=== PATIENT | male | born 1970 | race Caucasian/White ===

== ENCOUNTER 2017-04-20 06:03 | Inpatient (IN) | payer OTHER ==
[~2017-04-20] VITALS: Ht 190.5 cm; Wt 244.9 kg
--- NOTE | ~2017-04-20 | HC ---
[facility] [place] [address] CONSULTATION Name: LENCHO POST Room #: 239-P ADM IN M.R.#: [id number] Admission: 04/21/17 Attend Phys: Gil More DO Discharge: Date of : 66 Report #: [id number] THIS REPORT FOR: //name// CC: Gil Graves DATE OF SERVICE: 04/22/2017 ATTENDING PHYSICIAN: Dr. More. CONSULTATION REQUESTED: Dr. Leon. REASON FOR CONSULTATION: Antibiotic management. HISTORY OF PRESENT ILLNESS: A 47-year-old white man, resident of a local jail, suffered a fall at the jail. He required evacuation of right leg hematoma by Dr. Ash Graves on 04/20. The patient had previous episode of cellulitis of lower extremity, Staphylococcus aureus, oxacillin sensitive, isolated. He relates to the Emergency Room physician of previous MRSA infection. Currently in the ICU, I have discussed the patient's situation with nurse yesterday and put patient on vancomycin, Fortaz. The patient currently intubated, all information gathered from review of records. PAST MEDICAL HISTORY: 1. Morbid obesity. 2. Obstructive sleep apnea. 3. Atrial fibrillation. 4. Hypertension. 5. Diabetes mellitus. 6. Constipation. 7. Reflux esophagitis. 8. Chronic constipation. DRUG ALLERGIES: None listed. MEDICATIONS: Currently on vancomycin 1250 mg IV every 8 hours, Fortaz 1 g IV every 8 hours. The patient also on treatment with famotidine, p.r.n. glucose, p.r.n. glucagon, insulin lispro, propofol, fluoxetine, spironolactone, sennoside p.r.n., hydrocodone p.r.n., lorazepam, amphetamine, hydromorphone p.r.n., trazodone p.r.n., acetaminophen p.r.n. SOCIAL HISTORY: Unable to obtain, resides local jail. FAMILY HISTORY: Unable to obtain. [facility] [address] [place] [address] CONSULTATION Name: LENCHO POST Marianne Room #: [address] [place] [address] [place] ..#: [id number] Admission: 04/21/17 Attend Phys: Gil More DO Discharge: Date of : 66 Report #: [id number] REVIEW OF SYSTEMS: Unable to obtain. PHYSICAL EXAMINATION: GENERAL: Morbidly obese man, sedated in the ICU, on ventilator. VITAL SIGNS: Temperature 98.5, pulse 74, respirations 22, BP 113/51. HEENMT: Head normocephalic, atraumatic. Pupils reactive. Mouth unable to examine, orotracheal intubation. NECK: Short, difficult to examine. LUNGS: Clear. HEART: S1, S2. ABDOMEN: Morbidly obese, difficult to examine. GENITOURINARY AND RECTAL: Deferred. EXTREMITIES: Surgical wound, right leg with vacuum device in place. NEUROLOGIC: Unable to evaluate. LABORATORY DATA: Sodium 130, potassium 6.2, CO2 28, BUN 46, creatinine 2, glucose 209, alkaline phosphatase 123. Albumin 2.3, triglyceride 217, CRP 31.3. WBC from 13,700 on admission day to 17,300 today; hemoglobin from 14.4 to 9.6 g/dL, platelets 284,000. White blood cell count differential normal. ABGs: pH 7.31, uPR485, pO2 80, bicarbonate 28, lactate 1.84. These set of gases on FIO2 of 60%, tidal volume 600, 5 of PEEP. MICROBIOLOGY DATA: No cultures were obtained during this admission. RADIOLOGY EVALUATION: Chest x-ray: Endotracheal tube. Gastric catheter. Vascular congestion, pulmonary edema, cardiomegaly and lower lobe atelectasis or pneumonia. ASSESSMENT: 1. History of recurrent cellulitis. 2. Status post evacuation of hematoma, right leg. 3. Trauma, right leg. 4. Morbid obesity. 5. Acute kidney kvzyog-df-twwvkll kidney disease. 6. History of recurrent cellulitis of lower extremities. 7. History of methicillin-resistant staphylococcus aureus infection. SUGGESTIONS: Recommend MRSA screen. Continue Fortaz. Discontinue vancomycin. Zyvox 600 mg IV every [address] More and Dr. Leon, thank you for requesting my suggestions. <ELECTRONICALLY SIGNED> By: Ziyad Demarco MD 04/23/17 0846 [id number] 1035 Ziyad Demarco MD /nt
--- NOTE | ~2017-04-20 | O ---
[facility] [place] [address] OPERATIVE REPORT Name: LENCHO POST Room #: 218-P ADM IN M.R.#: [id number] Admission: 04/21/17 Attend Phys: Gil More DO Discharge: Date of : 66 Report #: [id number] THIS REPORT FOR: //name// CC: Gil Graves DATE OF SERVICE: 04/23/2017 PREOPERATIVE DIAGNOSIS: Right calf hematoma, status post evacuation and placement of wound VAC times 2. POSTOPERATIVE DIAGNOSIS: Right calf hematoma, status post evacuation and placement of wound VAC times 2. PROCEDURES: 1. Debridement and irrigation of the right calf wound and hematoma to the fascia. 2. Primary closure of right leg wound 26 cm in length. 3. Placement of Prevena wound VAC. SURGEON: Ash Mishra MD. CREDIT COORDINATOR: Paz Marc PA-C ANESTHESIA: General endotracheal. FINDINGS: Clean fascial tissue within the wound. There was skin edge necrosis along the anterior and posterior distal flaps of the wound edges. DRAINS: Hemovac times 2. CONDITION UPON LEAVING THE OR: Guarded. INDICATIONS FOR PROCEDURE: The patient is a 47-year-old gentleman who has had a right calf hematoma that previously has been evacuated and debrided with placement of wound VAC times 2. He was in need of a repeat debridement, irrigation and possible wound closure. DESCRIPTION OF PROCEDURE: Risks, benefits, alternatives, complications were discussed in detail with the patient's family including but not limited to risk of continued skin necrosis, reaccumulation of hematoma and need for reoperation. Informed consent was obtained from the patient's family. The right calf was marked in the ICU. He was brought from the ICU room directly to the operating room and anesthesia was induced. He was already previously intubated. The previous wound VAC was removed and calf and lower extremity were prepped and [facility] [address] [place] [address] OPERATIVE REPORT Name: LENCHO POST Marianne Room #: 218-P [facility] IN [facility].#: [id number] Admission: 04/21/17 Attend Phys: Gil More DO Discharge: Date of : 66 Report #: [id number] draped in normal sterile fashion. Timeout was performed properly identifying the patient, procedure as well as the instrumentation, all in the operating room were in agreement. The wound bed was then thoroughly irrigated with normal saline using pulse lavage. There was very minimal bleeding from this. Any areas of bleeding were cauterized with Bovie cautery. The wound did demonstrate wound edge duskiness/early necrosis, particularly of the distal half of the skin edges both anteriorly and posteriorly. It was felt that we would still try to close this over a drain. We did place 2 drains in the subcutaneous space above the fascia. The skin was closed with 2-0 nylon and a Prevena wound VAC was placed. Length of the incision was 26 cm. The patient tolerated this procedure well and went back to the ICU under care of anesthesia postoperatively. <ELECTRONICALLY SIGNED> By: Ash Mishra MD 04/30/17 1147 0836 0858 Ash Mishra MD /nt
--- NOTE | ~2017-04-20 | EKG ---
[address] [place] [address] ELECTROCARDIOGRAM REPORT Name: PETTY POSTERY Marianne Room #: 440-[facility].#: [id number] Admission: 04/20/17 Attend Phys: Gil More DO Discharge: Date of : 66 Report #: [id number] THIS REPORT FOR: //name// [facility] Test Date: 2017-04-20 Test Time: 17:52:39 Pat Name: LENCHO POST Department: Room: 440 P Gender: M Game Developer: CASSY : 1970 Requested By: Lb Nobles Order Number: [id number] MD: Fredy Wasserman Measurements Intervals [place] Rate: 67 P: 22 HI: 151 QRS: -47 QRSD: 107 T: 50 QT: 411 QTc: 434 Interpretive Statements Sinus rhythm Left anterior hemiblock Right ventricular conduction delay Compared to ECG 04/12/2013 10:55:12 No significant change was found Electronically Signed On 04-21-2017 8:47:10 CDT by Fredy Wasserman [email or web address] <ELECTRONICALLY SIGNED> By: Fredy Wasserman MD, [facility] 04/21/17 0847 175 51 Fredy Wasserman MD, [facility] /EPI
--- NOTE | ~2017-04-20 | HC ---
[facility] [place] [address] CONSULTATION Name: LENCHO POST Room #: 218-P ADM IN M.R.#: [id number] Admission: 04/21/17 Attend Phys: Gil More DO Discharge: Date of : 66 Report #: [id number] THIS REPORT FOR: //name// CC: Gil Graves DATE OF SERVICE: 04/27/2017 PERSONAL PHYSICIAN: Chris Ramirez MD CHIEF COMPLAINT: Right leg wound. HISTORY OF PRESENT ILLNESS: This is a 47-year-old white male who was on Xarelto for chronic atrial fibrillation, who slipped and fell, suffered a hematoma to his right leg, which is now required evacuation of the hematoma times 2. The patient after that last procedure had the wound closed and had a Prevena incisional VAC placed over the top of this. I was asked to assist in the care of the wound at this time. The patient himself is a fairly poor historian, at the time I am seeing the patient he received narcotics pain medicines and was very drowsy. According to the records, the patient prior to the second surgery and was actually left on the ventilator for a prolonged period of time, he off it now, but is sedated. The patient denies any other associated wounds at this time. PAST MEDICAL HISTORY: Significant for chronic pain syndrome, sleep apnea, anxiety, depression, hypertension, gastroesophageal reflux disease, and morbid obesity. The patient has got the atrial fibrillation. CURRENT MEDICATIONS: Including Adderall, diltiazem, Prozac, Lasix, Lorazepam, oxycodone, ranitidine, spironolactone, and trazodone as well as the Xarelto. DRUG ALLERGIES: None. SOCIAL HISTORY: The patient supposedly resides in a care facility. Supposedly has a history of smoking, but denies alcohol. FAMILY HISTORY AND REVIEW OF SYSTEMS: Unobtainable because of the patient's sedated state. PHYSICAL EXAMINATION: VITAL SIGNS: Stable. The patient otherwise with a T-max of 36.4. GENERAL: This is a sedated white male who is in no obvious distress, but morbidly obese. HEENT: Normocephalic, atraumatic. Mucous membranes are dry. Pupils are round. Sclerae are white. [address] [address] CONSULTATION Name: LENCHO POST Room #: 218-P [facility] IN M.R.#: [id number] Admission: 04/21/17 Attend Phys: Gil More DO Discharge: Date of : 66 Report #: [id number] NECK: Supple without JVD or masses. BACK: Nontender. LUNGS: Slight diminished breath sounds heard throughout, but no rhonchi. CHEST: Nontender. HEART: Irregularly irregular without murmur. ABDOMEN: Morbidly obese, soft, nontender. EXTREMITIES: The patient moves all extremities without difficulty. Evaluation of right lower extremity reveals a surgical incision with no Prevena VAC in place at this time. (The patient states the orthopedic surgeon came in this morning and removed it). The incision itself appears to be fairly clean, dry, and intact. No other associated ulcerations are noted. Bilateral heels are intact. NEUROLOGIC: Cranial nerves 2-12 grossly intact. Motor and sensory grossly intact. LABORATORY VALUES: White count 15.8, hemoglobin 7.5. Albumin 2.0. IMPRESSION: 1. Surgical wound to the right posterior calf, status post evacuation of hematoma times 2 secondary to fall on anticoagulants. 2. Morbid obesity. 3. Chronic atrial fibrillation. 4. Protein-calorie malnutrition-severe with albumin of 2.0. 5. Gastroesophageal reflux disease. PLAN: At this time, we will continue with Adaptic or Xeroform either one to the incisional line, cover this with ABD, Kerlix and Bry wrap for compression and watch this closely, does not appear to be having much drains at this time. If any part of the wound starts to dehisce, we will address it at that point in time. We will continue to maximize the patient's oral protein supplementation for healing. We will make sure the patient would need to start some physical and occupational therapy to get him up and ambulating, so the patient can be discharged to a skilled facility for further evaluation and treatment. I appreciate the ability to consult on this patient. We will continue to follow him. By: 0917 1047 Sunny Gudino MD /nt
--- NOTE | ~2017-04-20 | O ---
[facility] [place] [address] OPERATIVE REPORT Name: LENCHO POST Room #: 239-P ADM IN M.R.#: [id number] Admission: 04/21/17 Attend Phys: Gil More DO Discharge: Date of : 66 Report #: [id number] THIS REPORT FOR: //name// CC: Gil Graves DATE OF SERVICE: 04/21/2017 SERVICE: Orthopedics. FACILITY: [facility]. SURGEON: Lb Nobles MD DIRECTOR OF ENROLLMENT SURGEON: None. PREOPERATIVE DIAGNOSES: 1. Expanding hematoma, right leg. 2. Right knee contusion. 3. Status post incision and drainage, right leg hematoma yesterday. POSTOPERATIVE DIAGNOSES: 1. Expanding hematoma, right leg. 2. Right knee contusion. 3. Status post incision and drainage, right leg hematoma yesterday. PROCEDURE: 1. Irrigation and debridement down to fascia of the right leg. 2. Application of negative pressure wound VAC therapy measuring 26 x 16 cm. COMPLICATIONS: Difficulty with intubation requiring the patient be left intubated postoperatively and transferred to the ICU. No surgical complication. ESTIMATED BLOOD LOSS: 20 mL of new bleeding during the procedure with 500 mL of hematoma evacuated from the wound. FINDINGS: 1. Hematoma under pressure. 2. No obvious vessel bleeders. 3. Silver impregnated wound VAC applied to the right leg. HISTORY AND INDICATIONS: The patient is a 47-year-old gentleman who fell 2 nights ago and presented to [facility] Emergency Room early yesterday morning. He was having evidence of an expanding hematoma with compromise of the skin. He was taken to the operating room yesterday urgently. He underwent irrigation [facility] [address] [place] [address] OPERATIVE REPORT Name: LENCHO POST Room #: 239-P ADM IN M.R.#: [id number] Admission: 04/21/17 Attend Phys: Gil More DO Discharge: Date of : 66 Report #: [id number] and debridement and incision and drainage and he had pronounced improvement in his pain subsequent to that surgery. However, early this morning he began developing increasing pain and over the course of the morning he had a worsening clinical examination with significantly tight skin compartment, pressure and protrusion of the soft tissues beneath the wound dressing from the first surgery and worsening pain. For this reason, it was felt that it was emergent to return to the operating room due to risk of necrosis of the tissue for decompression of the hematoma. Risks, benefits, alternatives and indications for surgery were reviewed with him at the bedside prior to going to surgery. With his history of pulmonary complications in the past and his morbid obesity, he was told that he could require intubation for extended period of time and could even potentially from the sequelae of this injury and a trip to the operating room. The pain was progressive and I was concerned that waiting would cause significant tissue necrosis, which would put a major metabolic burden on his body in addition to the current injury that he has sustained and put him at significant risk of infection and further need for returns to the operating room under worse circumstances. PROCEDURE IN DETAIL: After the right lower extremity was correctly identified in the preoperative holding area as the operative extremity, the patient was taken to the operating room. He was maintained on the hospital bed and he was intubated by the Anesthesia team. The right leg was prepped and draped in standard sterile fashion. He received 3 grams of Ancef. The sutures, dressings and home from the previous surgery were removed and there was noted to be significant protrusion beneath the closed skin. When the skin was opened, hematoma spontaneously evacuated. After the leg was prepped and draped, the wound was opened up the rest of the way and extensive amount of hematoma was delivered. This was dark and coagulated, approximately 500 mL or so of volume. This was all evacuated. The wound was irrigated and then a pulse lavage was used to debride the fat necrosis that was present deep in the wound. The skin edges still do appear to be viable. There is some skin sloughing posteriorly. The majority of the soft tissue that was visible is subcutaneous fat due to the very thick fat layer in this particular individual's leg. The visible muscle did contract with stimulation with the electrocautery device. I explored proximally and distally and I extended the wounds proximally and distally to ensure that there were no hidden arterial or venous bleeders. There was no bleeding appreciated other then oozing likely secondary to his Xarelto use. Then 2.5 liters of irrigation was lavaged through the wound again to complete the debridement process. The wound was clean and dry at this point. A couple of additional small bleeders were coagulated with the cautery and then the wound was inspected and found to be dry. I placed a silver impregnated medium-sized wound VAC within the wound tunneling and underneath the anterior skin flap over the knee where the contusion originated and then achieved successful seal with the wound VAC. The wound measured 26 x 16 cm prior to application of the negative pressure therapy. This was a sterile dressing. The patient was [address] [address] OPERATIVE REPORT Name: LENCHO POST Room #: 239-P [facility] IN M.R.#: [id number] Admission: 04/21/17 Attend Phys: Gil More DO Discharge: Date of : 66 Report #: [id number] maintained intubated and was taken to the Intensive Care Unit in stable condition. <ELECTRONICALLY SIGNED> By: Lb Nobles MD 04/22/17 1233 1113 1133 Lb Nobles MD /nt
--- NOTE | ~2017-04-20 | O ---
[facility] [place] [address] OPERATIVE REPORT Name: LENCHO POST Room #: 218-P ADM IN M.R.#: [id number] Admission: 04/21/17 Attend Phys: Gil More DO Discharge: Date of : 66 Report #: [id number] THIS REPORT FOR: //name// CC: Gil Graves DATE OF SERVICE: 04/20/2017 PREOPERATIVE DIAGNOSIS: Right leg hematoma. POSTOPERATIVE DIAGNOSIS: Right leg hematoma. OPERATIVE PROCEDURE: Right knee incision, drainage, irrigation and debridement of hematoma. SURGEON: Ash Graves MD. GOLF COURSE KEEPER: JOSE Contreras. ANESTHETIC: General. INDICATIONS: See hospital dictated consultation from Dr. Nobles. Dr. Nobles and I discussed the case preoperatively. He indicated that this hematoma was under significant tension to where it appeared to be causing blanching of the skin. For that reason, we elected to proceed urgently to the operating room to do incision and drainage to try to prevent any further skin necrosis. DESCRIPTION OF PROCEDURE: After adequate general anesthesia had been obtained, the patient's right lower extremity was prepped and draped in the usual meticulous sterile fashion. We made a linear incision over the anterolateral aspect of his thigh. Immediate expression of significant clotted blood was decompressed. Care was taken to remove the clot in its entirety. I then used a pulse lavage to further remove any clot. This did extend up into the prepatellar bursa area. The wound was irrigated with antibiotic irrigation. I then placed 2-0 Monocryl sutures through the subQ tissue and the fascia to attempt to close down the space to prevent significant reaccumulation of hematoma. The wound edge itself was closed with a 2-0 Monocryl deep and then, we used a combination of mattress sutures and home to close the skin and it was not under tension fortunately. A Prevena dressing was applied. I did place Hemovac deep to the closure. Sterile compressive dressing was applied. <ELECTRONICALLY SIGNED> By: Ash Graves MD 04/27/17 1411 1531 1626 Ash Graves MD /nt
--- NOTE | ~2017-04-20 | 2DMMODE ---
[facility] [address] [place] [address] 2 D/M-MODE ECHOCARDIOGRAM Name: SINCERELENCHO Marianne Room #: 239-P [facility] IN ..#: [id number] Admission: 04/21/17 Attend Phys: Gil More, Discharge: Date of : 66 Date of Service: 04/21/17 1352 Report #: [id number] THIS REPORT FOR: //name// APPROVED REPORT Study performed: 04/21/2017 12:41:55 EXAM: Comprehensive 2D, Doppler, and color-flow Echocardiogram Patient Location: ICU Room #: 239 Status: routine BSA: 3.21 HR: 55 bpm BP: 131/62 mmHg Rhythm: Atrial Fibrillation Other Information Study Quality: Adequate Technically limited study due to no mobility, super morbid obese. Indications Atrial Fibrillation Echo Enhancing Agent Indication: Endocardial border delineation Agent(s) / Amount(s) Used: Optison 3 cc 2D Dimensions RVDd: 48.68 mm LVEF(%): 60.91 (>50%) IVSd: 13.97 (7-11mm) LVOT Diam: 23.34 (18-24mm) LVDd: 47.85 mm PWd: 13.81 (7-11mm) LVDs: 32.24 (25-40mm) Aortic Root: 34.88 mm Gonsalez's LVEF: 60.91 % Volumes Left Atrial Volume (Systole) Single Plane 4CH: 81.13 mL Single Plane 2CH: 78.56 mL LA ESV Index: 29.00 mL/m2 Aortic Valve AoV Peak West.: 1.52 m/s AO Peak Gr.: 9.60 mmHg LVOT Max P.[address] [facility] [address] [place] [address] 2 D/M-MODE ECHOCARDIOGRAM Name: LENCHO POST Marianne Room #: [address] [place] [address] [place] [facility].#: [id number] Admission: 04/21/17 Attend Phys: Gil More, Discharge: Date of : 66 Date of Service: 04/21/17 1352 Report #: [id number] LVOT Max V: 1.30 m/s LEON Vmax: 3.66 cm2 Mitral Valve IVRT: 59.98 ms Pulmonary Valve PV Peak West.: 1.22 m/s PV Peak Gr.: 5.99 mmHg Tricuspid Valve TR Peak West.: 2.63 m/s RAP Estimate: 10.00 mmHg TR Peak Gr.: 27.67 mmHg PA Pressure: 38.00 mmHg Left Ventricle The left ventricle is normal size. There is normal LV segmental wall motion. Mild concentric left ventricular hypertrophy. Left ventricular systolic function is normal. LVEF is 60-65%. This study is not technically sufficient to allow evaluation of the LV diastolic function due to atrial fibrillation. Right Ventricle Right ventricle is not well visualized but appears normal. Atria The left atrium size is normal. The right atrium size is normal. Aortic Valve The aortic valve is normal in structure. No aortic regurgitation is present. There is no aortic valvular stenosis. Mitral Valve The mitral valve is normal in structure. Trace mitral regurgitation. No evidence of mitral valve stenosis. Tricuspid Valve The tricuspid valve is normal in structure. There is trace tricuspid regurgitation. The right atrial pressure is estimated at 10 mmHg. There is mild pulmonary hypertension with an estimated PAP 35-40mmHg. Pulmonic Valve The pulmonary valve is normal in structure. There is no pulmonic valvular regurgitation. [facility] [address] [place] [address] 2 D/M-MODE ECHOCARDIOGRAM Name: LENCHO POST Room #: 239-P [facility] IN .R.#: [id number] Admission: 04/21/17 Attend Phys: Gil More, Discharge: Date of : 66 Date of Service: 04/21/17 1352 Report #: [id number] Great Vessels The aortic root is normal in size. Ascending aorta is not well visualized. IVC is dilated and collapses <50% with inspiration. <Conclusion> The left ventricle is normal size. LVEF is 60-65%. Right ventricle is not well visualized but appears normal. The aortic valve is normal in structure. The mitral valve is normal in structure. Trace mitral regurgitation. The tricuspid valve is normal in structure. There is trace tricuspid regurgitation. The right atrial pressure is estimated at 10 mmHg. There is mild pulmonary hypertension with an estimated PAP 35-40mmHg. The pulmonary valve is normal in structure. <ELECTRONICALLY SIGNED> By: Harjit Marvin MD 04/21/17 1352 1352 1352 Harjit Marvin MD /INF
--- NOTE | ~2017-04-20 | HC ---
[facility] [place] [address] CONSULTATION Name: LENCHO POST Room #: 218-P ADM IN M.R.#: [id number] Admission: 04/21/17 Attend Phys: Gil More DO Discharge: Date of : 66 Report #: [id number] THIS REPORT FOR: //name// CC: Gil Graves DATE OF SERVICE: 04/29/2017 HISTORY OF PRESENT ILLNESS: The patient is a 47-year-old white male with history of super morbid obesity, height 6 feet 3 inches, weight 540 pounds. He was attempting to stand up from a chair, slipped from under him and he ended up falling onto his right knee. On 04/20/2017, he underwent right knee I and D. Because of the expansion of the hematoma, he underwent another I and D down to the fascia on 04/21/2017. The wound was subsequently closed, 26 cm, involving the right calf on 04/23/2017. He had complications with respiratory failure, was in the ICU. He also had acute urinary retention. These have both improved. He has been transferred out of the ICU. He is in progressive care. He is now actually off any oxygen. Pulmonary Medicine is currently following from far. As far as his urinary retention, he is now voiding after Morales catheter removal and Urology has signed off. We are seeing him in rehabilitation medicine consultation. PAST MEDICAL HISTORY: Left ankle weakness/partial paralysis secondary to an MRSA infection per his history. He notes that left ankle is tender and he is weak in movement of it. He has history of chronic kidney disease, super morbid obesity, obstructive sleep apnea, apparently was using an O2 of 3-4 liters at night, premorbidly. He has reported, however, that he does need the oxygen. He has had a prior cholecystectomy. MEDICATIONS: Please see the full medication listing. HABITS: Past tobacco use. SOCIAL HISTORY: He lives at [facility] in a locked Behavioral Unit. He was able to walk short distances and apparently up to 6 feet in order to get in and out of the shower as his wheelchair would not fit in there. He typically gets around using his wheelchair with both arms and legs. He has a significant other that apparently is a resident at the [facility] community as well. REVIEW OF SYSTEMS: No current complaints of chest pain, shortness of breath, abdominal discomfort. PHYSICAL EXAMINATION: GENERAL: A 47-year-old, significantly obese white male in no obvious distress. VITAL SIGNS: Temperature is 36.6, pulse 75, respirations 18, blood pressure [address] [address] CONSULTATION Name: LENCHO POST Room #: 218-[facility] IN ..#: [id number] Admission: 04/21/17 Attend Phys: Gil More DO Discharge: Date of : 66 Report #: [id number] . NEUROLOGIC: He is alert. He is pleasant. He was cooperative with me, follows commands without difficulty. EXTREMITIES: Functional range of motion of the upper extremities. Strength appears to be a grade 4+/5. DTRs are trace to 1. Lower extremities: The right leg is dressed. He is able to dorsiflex and plantar flex the right ankle. Proximal strength appears to be at least a grade 4-. Left lower extremity, he has some discomfort over the left ankle, which he notes is chronic. I had him try to dorsiflex and plantar the left ankle and he has some discomfort with that. It was difficult to actually grade his strength. Proximally, he appears to be probably a 4 to 4-. Tone appeared to be intact. Functionally, he was able to sit to stand with only contact guard assistance and did ambulate 26 feet contact guard assistance with a front-wheeled walker. In OT, he was noted to transfer to the recliner with contact guard, but he was significantly short of breath. ASSESSMENT: A 47-year-old white male with the following problem list: 1. Medical complexity with generalized debilitation. 2. 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 3. Acute respiratory failure that has resolved. 4. Super morbid obesity. 5. Obstructive sleep apnea. 6. Atrial fibrillation. 7. Protein-calorie malnutrition. 8. Acute urinary retention, which has resolved. PLAN: Discussion with the patient. We discussed an acute in-hospital inpatient rehabilitation stay to try to further maximize his strength, functional mobility and ADLs. The patient indicated to me a desire to obtain the objective goals from [facility] as to what they are requesting prior to an acute in-hospital inpatient rehabilitation stay. I will ask the restorative rehab aide, along with case management to further assist in this regard. I also encouraged the patient to work with physical therapy more today and occupational therapy to potentially document even more progress that could be relayed back to the [facility]. He desires to return back there and we will attempt to assist him as we can. We will be glad to follow along with you. By: [id number] Sony Hawkins MD /
--- NOTE | ~2017-04-20 | HC ---
[facility] [place] [address] CONSULTATION Name: LENCHO POST Room #: 239-P [facility] IN M.R.#: [id number] Admission: 04/21/17 Attend Phys: Gil More DO Discharge: Date of : 66 Report #: [id number] THIS REPORT FOR: //name// CC: Gil Graves DATE OF SERVICE: 04/21/2017 REASON FOR CONSULTATION: Respiratory failure. IMPRESSION: 1. Respiratory failure, postoperative, expected. 2. Status post fall. 3. Hematoma of the right leg, had irrigation and debridement to fascia of the right leg and application of negative pressure wound. 4. Difficult intubation. 5. Chronic pain. 6. History of obstructive sleep apnea, appears intolerant to CPAP. 7. Anxiety. 8. Depression. 9. Hypertension. 10. Gastroesophageal reflux disease. 11. Constipation. 12. Left lower limb weakness. 13. Hyperactivity. PLAN: ICU protocol. We will keep intubated as long as procedures because of difficulty, may even consider trach depending on complexity. HISTORY OF PRESENT ILLNESS: A 47-year-old male admitted after a fall, right leg pain and swelling, on Xarelto for atrial fibrillation, has required surgery on 04/20/2017 and today with difficult intubation and will be left intubated. MEDICATIONS: In the past included Adderall 20 mg t.i.d., diltiazem 240 daily, Prozac 60 mg daily, Lasix 80 mg daily, lorazepam p.r.n., oxycodone, ranitidine 150 b.i.d., spironolactone 50 daily, and trazodone. PAST MEDICAL HISTORY: Per chart includes he was on a regular diet. Obesity, anxiety, insomnia, AFib, depression, hypertension, diabetes, GERD, chronic pain, neuropathy, constipation, reflux, cellulitis, lower limb bilateral muscle weakness, and hyperactivity. ALLERGIES: No known. REVIEW OF SYSTEMS: Unobtainable. [facility] [address] [place] [address] CONSULTATION Name: LENCHO POST Room #: [address] [place] [address] IN [facility].#: [id number] Admission: 04/21/17 Attend Phys: Gil More DO Discharge: Date of : 66 Report #: [id number] SOCIAL HISTORY: Positive tobacco in the past. Negative ETOH. FAMILY HISTORY: Dementia and colon cancer. PHYSICAL EXAMINATION: VITAL SIGNS: Temperature 98.8, pulse 72, respirations 22, and BP 131/62. HEENT: Eyes: Negative icterus. Endotracheal tube of 7. NECK: Trachea midline. LUNGS: Clear anteriorly. HEART: Hardy, regular. ABDOMEN: Bowel sounds present. EXTREMITIES: Showed chronic change. NEUROLOGIC: Sedated. Laboratory and X-ray were reviewed. Chest x-ray pending. <ELECTRONICALLY SIGNED> By: Princess Leon MD 04/24/17 0849 1219 1622 Princess Leon MD /ronald
[~2017-04-20 06:03] MED LIST: ADDERALL 20 MG20 M1 PO; ALBUTEROL SUL5 MG/ML; ALLOPURINOL 10100 M2 PO; APAP650 PO; BUPROPION XL150 MG PO; CELEXA 20 MG TA20 M1 PO; CELEXA 20 MG TA20 MG PO; CLOTRIMAZOLE-BE15 GM TP; COLACE 100 MG100 MG PO; COLCHICINE 0.60.6 M2 PO; DOXYCYCLINE 10100 MG PO; DUONEB 2.5-0.5 M3 ML INH; FUROSEMIDE 40 M40 M1 PO; GLUCOPHAGE1000 MG PO; HYDROCHLOROTHIA25 M1 PO; KEFLEX500 MG PO; LASIX 20 MG TAB20 MG PO; LASIX 40 MG TAB40 M1 PO; LISINOPRIL5 MG; LISINOPRIL5 MG PO; MAG-OX 400 TAB400 MG PO; MEPILEX1 EACH TP; OXYCODONE HCL 55 MG; OXYCODONE HCL 55 MG PO; OXYCONTIN15 MG PO; PERCOCET 5-3251 EACH PO; POTASSIUM20 PO; PROZAC 10 MG CA10 MG; PROZAC 20 MG20 M1 PO; TORSEMIDE10 MG PO
[2017-04-20 06:05] VITALS: BP 204/82
[2017-04-20 07:34] LABS: HEMATOCRIT 43.7 % (42.0-52.0); HEMOGLOBIN 14.4 gm/dL (14.0-18.0); MCH 29.8 pg (26.0-34.0); MCV 90.2 fL (80.0-100.0); RBC 4.85 mil/uL (4.50-6.00); RDW 14.9 % (10.5-14.5); WBC 13.7 thou/uL (4.0-11.0)
[2017-04-20 07:49] LABS: CALCIUM 9.3 mg/dL (8.5-10.1); CREATININE 1.9 mg/dL (0.7-1.3); POTASSIUM 4.9 mmol/L (3.5-5.1)
[2017-04-20 07:54] LABS: APTT 31.8 Seconds (24.5-32.8); INR 1.1; PROTIME 11.4 Seconds (9.3-11.4)
[2017-04-20 07:55] LABS: ALBUMIN 2.9 g/dL (3.4-5.0); TOTAL BILIRUBIN 0.2 mg/dL (<0.1-1.0); TOTAL PROTEIN 8.7 g/dL (6.4-8.2)
[2017-04-20] MEDS ORDERED: ZANTAC 150MG T150 MG PO (09:22)
[2017-04-20] MEDS ORDERED: SENNA8.6 MG PO (09:23)
[2017-04-20] MEDS ORDERED: ALDACTONE50 MG PO (09:23)
[2017-04-20] MEDS ORDERED: XARELTO20 MG PO (09:23)
[2017-04-20] MEDS ORDERED: ATIVAN0.5 MG PO (09:23)
[2017-04-20] MEDS ORDERED: TYLENOL325 MG PO (09:24)
[2017-04-20] MEDS ORDERED: ALLERGY RE12.5 MG/5 PO (09:25)
[2017-04-20] MEDS ORDERED: TRAZODONE HCL100 MG PO (09:27)
[2017-04-20] MEDS ORDERED: CARDIZEM CD240 MG PO (09:28)
[2017-04-20] MEDS ORDERED: ADDERALL 20 MG20 M1 PO (09:28)
[2017-04-20] MEDS ORDERED: PROZAC20 MG PO (09:29)
[2017-04-20] MEDS ORDERED: ATIVAN1 MG PO (09:29)
[2017-04-20] MEDS ORDERED: OXYCODONE HCL 55 MG PO (09:30)
[2017-04-20 09:32] VITALS: BP 204/82
[2017-04-20 10:14] VITALS: BP 204/82
[2017-04-20 10:48] VITALS: BP 151/72
[2017-04-20 20:10] VITALS: BP 153/54
[2017-04-21] VITALS (21 sets, daily range): BP systolic 86–151; BP diastolic 52–79
[2017-04-21 11:48] LABS: HEMOGLOBIN 11.5 gm/dL (14.0-18.0)
[2017-04-21 12:48] LABS: APTT 28.6 Seconds (24.5-32.8); PROTIME 10.7 Seconds (9.3-11.4)
[2017-04-21 15:13] LABS: ABG SAMPLE TYPE ARTERIAL; BE(vivo) 1.3 mmol/L (-2 to +3); HCO3 28.9 mmol/L (22.0-26.0); LACTATE 2.12 mmol/L (0.5-2.0); O2(CT) 16.5 mL/dL (15.0-23.0); O2Hb 97.5 % (92.0-98.0); PO2 127.7 mmHg (80.0-100.0); STICK SITE R.RADIAL; sO2 98.2 % (92.0-98.0); tCO2 30.7 mmol/L (24.0-30.0)
[2017-04-21 15:14] LABS: TIDAL VOLUME 600 ml
[2017-04-21 15:15] LABS: ABG COMMENT A/C
[2017-04-22] VITALS (24 sets, daily range): BP systolic 98–139; BP diastolic 44–78
[2017-04-22 04:44] LABS: HEMATOCRIT 28.6 % (42.0-52.0); HEMOGLOBIN 9.6 gm/dL (14.0-18.0); MCH 30.4 pg (26.0-34.0); MCHC 33.6 g/dL (28.0-37.0); MCV 90.4 fL (80.0-100.0); PLATELET COUNT 284 thou/uL (150-400); RBC 3.17 mil/uL (4.50-6.00); RDW 14.9 % (10.5-14.5); WBC 17.3 thou/uL (4.0-11.0)
[2017-04-22 04:53] LABS: ALBUMIN 2.3 g/dL (3.4-5.0); CALCIUM 8.1 mg/dL (8.5-10.1); TOTAL BILIRUBIN 0.2 mg/dL (<0.1-1.0); TOTAL PROTEIN 7.1 g/dL (6.4-8.2)
[2017-04-22 04:56] LABS: POTASSIUM 6.5 mmol/L (3.5-5.1)
[2017-04-22 05:04] LABS: MANUAL DIFF YES
[2017-04-22 05:07] LABS: ABG SAMPLE TYPE ARTERIAL; BE(vivo) 1.8 mmol/L (-2 to +3); HCO3 28.9 mmol/L (22.0-26.0); LACTATE 1.84 mmol/L (0.5-2.0); O2(CT) 14.5 mL/dL (15.0-23.0); O2Hb 94.7 % (92.0-98.0); PO2 80.2 mmHg (80.0-100.0); STICK SITE R.RADIAL; TIDAL VOLUME 600 ml; sO2 94.6 % (92.0-98.0); tCO2 30.7 mmol/L (24.0-30.0)
[2017-04-22 05:08] LABS: pH 7.315 (7.360-7.450)
[2017-04-22 07:31] LABS: METAMYELOCYTES 1 %; TOTAL CELL COUNT 100
[2017-04-22 07:32] LABS: ANISOCYTOSIS SLIGHT; POLYCHROMASIA SLIGHT
[2017-04-22 17:37] LABS: ALBUMIN 2.2 g/dL (3.4-5.0); CALCIUM 8.1 mg/dL (8.5-10.1); CREATININE 1.7 mg/dL (0.7-1.3); PHOSPHORUS 4.7 mg/dL (2.5-4.9)
[2017-04-23] VITALS (37 sets, daily range): BP systolic 111–159; BP diastolic 50–87
[2017-04-23 03:53] LABS: HEMATOCRIT 26.3 % (42.0-52.0); HEMOGLOBIN 8.6 gm/dL (14.0-18.0); MCH 30.1 pg (26.0-34.0); MCHC 32.7 g/dL (28.0-37.0); MCV 92.2 fL (80.0-100.0); PLATELET COUNT 274 thou/uL (150-400); RBC 2.85 mil/uL (4.50-6.00); WBC 15.3 thou/uL (4.0-11.0)
[2017-04-23 03:56] LABS: MANUAL DIFF YES
[2017-04-23 04:06] LABS: ALBUMIN 2.2 g/dL (3.4-5.0); CALCIUM 8.2 mg/dL (8.5-10.1); CREATININE 1.7 mg/dL (0.7-1.3); POTASSIUM 5.1 mmol/L (3.5-5.1); TOTAL BILIRUBIN 0.2 mg/dL (<0.1-1.0)
[2017-04-23 05:08] LABS: ABSOLUTE NEUTROPHILS 12.1 thou/uL (1.4-8.2); METAMYELOCYTES 1 %; MYELOCYTES 1 %; TOTAL CELL COUNT 100
[2017-04-23 05:24] LABS: ABG SAMPLE TYPE ARTERIAL; BE(vivo) 3.8 mmol/L (-2 to +3); HCO3 30.9 mmol/L (22.0-26.0); O2(CT) 13.4 mL/dL (15.0-23.0); O2Hb 96.3 % (92.0-98.0); PCO2 60.7 mmHg (35.0-45.0); PO2 103.5 mmHg (80.0-100.0); sO2 97.2 % (92.0-98.0); tCO2 32.7 mmol/L (24.0-30.0)
[2017-04-23 05:25] LABS: STICK SITE LRA; pH 7.324 (7.360-7.450)
[2017-04-23 05:26] LABS: ABG COMMENT AC20 600 +5 60%; PO2/FIO2 172.1; TIDAL VOLUME 600 ml
[2017-04-24] VITALS (25 sets, daily range): BP systolic 98–168; BP diastolic 53–88
[2017-04-24 05:13] LABS: HEMATOCRIT 24.6 % (42.0-52.0); HEMOGLOBIN 7.9 gm/dL (14.0-18.0); MCH 29.7 pg (26.0-34.0); MCHC 31.9 g/dL (28.0-37.0); MCV 93.1 fL (80.0-100.0); RBC 2.65 mil/uL (4.50-6.00); RDW 15.1 % (10.5-14.5); WBC 13.5 thou/uL (4.0-11.0)
[2017-04-24 05:29] LABS: CALCIUM 8.5 mg/dL (8.5-10.1); CREATININE 1.2 mg/dL (0.7-1.3); POTASSIUM 4.5 mmol/L (3.5-5.1)
[2017-04-24 10:10] LABS: ABG SAMPLE TYPE ARTERIAL; BE(vivo) 0.3 mmol/L (-2 to +3); HCO3 26.7 mmol/L (22.0-26.0); O2(CT) 13.6 mL/dL (15.0-23.0); O2Hb 95.6 % (92.0-98.0); PO2 94.1 mmHg (80.0-100.0); STICK SITE R.RADIAL; pH 7.329 (7.360-7.450); sO2 96.6 % (92.0-98.0); tCO2 28.3 mmol/L (24.0-30.0)
[2017-04-24 10:11] LABS: Pressure Support 8 cm H20
[2017-04-25] VITALS (22 sets, daily range): BP systolic 109–150; BP diastolic 44–72
[2017-04-26] VITALS (19 sets, daily range): BP systolic 108–176; BP diastolic 52–84
[2017-04-27 03:17] VITALS: BP 125/70
[2017-04-27 04:36] LABS: HEMATOCRIT 23.3 % (42.0-52.0); HEMOGLOBIN 7.5 gm/dL (14.0-18.0); MCH 29.9 pg (26.0-34.0); MCHC 32.3 g/dL (28.0-37.0); MCV 92.5 fL (80.0-100.0); PLATELET COUNT 343 thou/uL (150-400); RBC 2.52 mil/uL (4.50-6.00); RDW 14.9 % (10.5-14.5); WBC 15.8 thou/uL (4.0-11.0)
[2017-04-27 04:39] LABS: MANUAL DIFF YES
[2017-04-27 04:44] LABS: CALCIUM 8.5 mg/dL (8.5-10.1); CREATININE 0.8 mg/dL (0.7-1.3); POTASSIUM 4.8 mmol/L (3.5-5.1)
[2017-04-27 05:44] LABS: ABSOLUTE NEUTROPHILS 12.2 thou/uL (1.4-8.2); ANISOCYTOSIS SLIGHT; MACROCYTES SLIGHT; METAMYELOCYTES 2 %; NUCLEATED RBCS 1 /100WBC; POLYCHROMASIA OCCASIONAL; TOTAL CELL COUNT 100
[2017-04-27 07:46] VITALS: BP 120/42
[2017-04-27 08:06] LABS: ABG SAMPLE TYPE ARTERIAL; BE(vivo) 3.3 mmol/L (-2 to +3); HCO3 28.3 mmol/L (22.0-26.0); LACTATE 1.52 mmol/L (0.5-2.0); O2(CT) 12.7 mL/dL (15.0-23.0); O2Hb 90.7 % (92.0-98.0); PO2 60.1 mmHg (80.0-100.0); pH 7.416 (7.360-7.450); sO2 91.3 % (92.0-98.0); tCO2 29.7 mmol/L (24.0-30.0)
[2017-04-27 08:07] LABS: STICK SITE L.BRACHIAL
[2017-04-27 16:37] VITALS: BP 126/44
[2017-04-27 19:51] VITALS: BP 134/64
[2017-04-28 04:11] VITALS: BP 147/78
[2017-04-28 04:41] LABS: HEMATOCRIT 24.2 % (42.0-52.0); HEMOGLOBIN 7.8 gm/dL (14.0-18.0); MCH 30.1 pg (26.0-34.0); MCHC 32.4 g/dL (28.0-37.0); MCV 92.9 fL (80.0-100.0); PLATELET COUNT 351 thou/uL (150-400); RDW 14.9 % (10.5-14.5); WBC 13.2 thou/uL (4.0-11.0)
[2017-04-28 04:55] LABS: ALKALINE PHOSPHATASE 110 U/L (46-116); ANION GAP 1 mmol/L (7-16); BUN 16 mg/dL (7-18); CALCIUM 8.7 mg/dL (8.5-10.1); CHLORIDE 104 mmol/L (98-107); CO2 32 mmol/L (21-32); CREATININE 0.8 mg/dL (0.7-1.3); GLUCOSE 113 mg/dL (74-106); POTASSIUM 4.9 mmol/L (3.5-5.1); SGOT 21 U/L (15-37); SGPT < 6 U/L (30-65); SODIUM 137 mmol/L (136-145); TOTAL BILIRUBIN 0.3 mg/dL (<0.1-1.0); TOTAL PROTEIN 6.9 g/dL (6.4-8.2)
[2017-04-28 04:58] LABS: MANUAL DIFF YES
[2017-04-28 05:53] LABS: ABSOLUTE NEUTROPHILS 8.1 thou/uL (1.4-8.2); METAMYELOCYTES 3 %; MYELOCYTES 1 %; NUCLEATED RBCS 2 /100WBC; TOTAL CELL COUNT 100
[2017-04-28 05:54] LABS: POLYCHROMASIA 2+
[2017-04-28 11:32] VITALS: BP 139/54
[2017-04-29 04:11] VITALS: BP 139/62
[2017-04-29 07:40] VITALS: BP 142/68
[2017-04-29 12:00] VITALS: BP 119/62
[2017-04-29 19:15] VITALS: BP 139/56
[2017-04-30 02:18] LABS: HEMOGLOBIN 8.3 gm/dL (14.0-18.0)
[2017-04-30 02:19] LABS: HEMATOCRIT 25.5 % (42.0-52.0); MCH 29.6 pg (26.0-34.0); MCHC 32.4 g/dL (28.0-37.0); MCV 91.5 fL (80.0-100.0); PLATELET COUNT 384 thou/uL (150-400); RBC 2.79 mil/uL (4.50-6.00); RDW 15.3 % (10.5-14.5); WBC 11.6 thou/uL (4.0-11.0)
[2017-04-30 02:25] LABS: MANUAL DIFF YES
[2017-04-30 02:31] LABS: ALBUMIN 2.2 g/dL (3.4-5.0); CALCIUM 8.9 mg/dL (8.5-10.1); CREATININE 0.8 mg/dL (0.7-1.3); MAGNESIUM 1.7 mg/dL (1.8-2.4); POTASSIUM 4.6 mmol/L (3.5-5.1); TOTAL BILIRUBIN 0.5 mg/dL (<0.1-1.0); TOTAL PROTEIN 7.2 g/dL (6.4-8.2)
[2017-04-30 03:07] VITALS: BP 141/58
[2017-04-30 04:12] LABS: ABSOLUTE NEUTROPHILS 7.8 thou/uL (1.4-8.2); MYELOCYTES 2 %; TOTAL CELL COUNT 100
[2017-04-30 08:11] VITALS: BP 147/62
[2017-04-30] MEDS ORDERED: COLACE 100 MG100 MG PO (11:29)
[2017-04-30] MEDS ORDERED: ALBUTEROL2.5 MG/0.5 INH (11:29)
[2017-04-30] MEDS ORDERED: IRON325 PO (11:29)
[2017-04-30] MEDS ORDERED: PEPCID20 MG PO (11:29)
[2017-04-30] MEDS ORDERED: FLOMAX0.4 MG PO (11:29)
== END 2017-04-30 18:40 | DRG 570 ==
LOC: ER 06:03 → EROBS 08:14 → 4S 10:12 → ICU 04-21 11:08 → 2N 04-26 15:16
PROVIDERS: Emergency Medicine; Internal Medicine Endocrinology, Diabetes & Metabolism; Internal Medicine Geriatric Medicine; Internal Medicine Pulmonary Disease; Nurse Practitioner Family; Orthopaedic Surgery Sports Medicine
PROC: 0JBN0ZZ Excision of Right Lower Leg Subcutaneous Tissue and Fascia, Open Approach (ICD-10-PCS; principal; 2017-04-21)
PROC: 5A1945Z Respiratory Ventilation, 24-96 Consecutive Hours (ICD-10-PCS; 2017-04-21)
PROC: 02HV33Z Insertion of Infusion Device into Superior Vena Cava, Percutaneous Approach (ICD-10-PCS; 2017-04-21)
DX: S80.01XA Contusion of right knee, initial encounter (principal); E43 Unspecified severe protein-calorie malnutrition; J96.00 Acute respiratory failure, unspecified whether with hypoxia or hypercapnia; Z68.44 Body mass index [BMI] 60.0-69.9, adult; M25.00 Hemarthrosis, unspecified joint; N17.9 Acute kidney failure, unspecified; F32.9 Major depressive disorder, single episode, unspecified; M10.9 Gout, unspecified; E66.01 Morbid (severe) obesity due to excess calories; G47.33 Obstructive sleep apnea (adult) (pediatric); K59.09 Other constipation; G89.4 Chronic pain syndrome; I12.9 Hypertensive chronic kidney disease with stage 1 through stage 4 chronic kidney disease, or unspecified chronic kidney disease; I48.2 Chronic atrial fibrillation; R33.9 Retention of urine, unspecified; D64.9 Anemia, unspecified; Z79.899 Other long term (current) drug therapy; Z87.891 Personal history of nicotine dependence
CPT/HCPCS: 10078; 10081; 27000; 50010; 50101; 50386; 50415; 50643; 50953; 50970; 51412; 53078; 56525; 56527; 57091; 62110; 62900; 70005

== ENCOUNTER 2017-05-07 14:38 | Emergency (ER) | payer OTHER ==
[~2017-05-07] VITALS: Ht 190.5 cm; Wt 237.7 kg
[~2017-05-07 14:38] MED LIST changes: +ALBUTEROL2.5 MG/0.5 INH; +ALDACTONE50 MG PO; +ALLERGY RE12.5 MG/5 PO; +ATIVAN0.5 MG PO; +ATIVAN1 MG PO; +CARDIZEM CD240 MG PO; +FLOMAX0.4 MG PO; +IRON325 PO; +PEPCID20 MG PO; +PROZAC20 MG PO; +SENNA8.6 MG PO; +TRAZODONE HCL100 MG PO; +TYLENOL325 MG PO; +XARELTO20 MG PO; +ZANTAC 150MG T150 MG PO
[2017-05-07 15:15] LABS: ABSOLUTE NEUTROPHILS 8.3 thou/uL (1.4-8.2); EOSINOPHILS 3.4 % (0.0-3.0); HEMATOCRIT 32.7 % (42.0-52.0); HEMOGLOBIN 10.4 gm/dL (14.0-18.0); LYMPHOCYTES 13.5 % (24.0-44.0); MCH 28.9 pg (26.0-34.0); MCHC 31.8 g/dL (28.0-37.0); MONOCYTES 8.8 % (1.0-8.0); PLATELET COUNT 460 thou/uL (150-400); POLYS 73.3 % (36.0-66.0); RBC 3.59 mil/uL (4.50-6.00); RDW 15.4 % (10.5-14.5); WBC 11.3 thou/uL (4.0-11.0)
[2017-05-07 15:26] LABS: CALCIUM 9.3 mg/dL (8.5-10.1); CREATININE 1.4 mg/dL (0.7-1.3)
[2017-05-07 15:32] LABS: ALBUMIN 2.9 g/dL (3.4-5.0); TOTAL BILIRUBIN 0.3 mg/dL (<0.1-1.0); TOTAL PROTEIN 8.7 g/dL (6.4-8.2)
[2017-05-07 15:34] LABS: MANUAL DIFF NO
[2017-05-07 15:52] LABS: URINE BILIRUBIN NEGATIVE (Negative); URINE BLOOD NEGATIVE (Negative); URINE COLOR YELLOW; URINE GLUCOSE-RANDOM* NEGATIVE (Negative); URINE KETONES NEGATIVE (Negative); URINE NITRITE NEGATIVE (Negative); URINE PROTEIN (DIPSTICK) NEGATIVE (Negative); URINE UROBILINOGEN 0.2 E.U./dl (0.2-1.0)
== END 2017-05-07 19:15 ==
LOC: ER 14:38
PROVIDERS: Nurse Practitioner Family
DX: Z48.01 Encounter for change or removal of surgical wound dressing (principal); E66.9 Obesity, unspecified; F32.9 Major depressive disorder, single episode, unspecified; E11.9 Type 2 diabetes mellitus without complications; F17.210 Nicotine dependence, cigarettes, uncomplicated; Z98.890 Other specified postprocedural states

== ENCOUNTER 2017-05-17 18:42 | Inpatient (IN) | payer OTHER ==
[~2017-05-17] VITALS: Ht 190.5 cm; Wt 245.3 kg
--- NOTE | ~2017-05-17 | HC ---
[facility] [place] [address] CONSULTATION Name: LENCHO POST Room #: 211-P ADM IN M.R.#: [id number] Admission: 05/17/17 Attend Phys: Gil More DO Discharge: Date of : 66 Report #: [id number] THIS REPORT FOR: //name// CC: Gil Ramirez DATE OF SERVICE: 05/18/2017 ATTENDING PHYSICIAN: Micky Chaudhary M.D. REASON FOR CONSULTATION: Antibiotic management. HISTORY OF PRESENT ILLNESS: The patient is a 47-year-old white man, known to me from a previous hospitalization at [facility] where he was discharged on April 30, after having undergone drainage of the right calf hematoma by Dr. Ash Mishra. The patient is residing in a local mcc in [place]. He was visited by Dr. Chris Ramirez, but apparently the patient had a disagreement with Dr. Ramirez. The patient has a wound on the right leg in the area of the hematoma evacuation and cultures were recently obtained and obviously multiple organisms were isolated. The patient had the feeling that he must be treated with antibiotic and Dr. Ramirez recommended, wisely so, local wound care and no systemic antibiotics. The patient elected to come to [facility] last night, he was evaluated by Dr. Cruz in the emergency room, I discussed the patient's situation with him, I was advised lactic acid was mildly elevated, and he may have cellulitic changes of the right leg. At present, the patient relates no significant pain or fevers, but he tells me his temperatures are not like most everybody else. The patient denies having chills or fevers. No increasing pain on the right leg. PAST MEDICAL HISTORY: Morbid obesity. Right leg hematoma, status post evacuation. Chronic kidney disease with worsening azotemia lately. Mild elevation of lactate lately. History of atrial fibrillation, hypertension, and obstructive sleep apnea. Diabetes mellitus. Chronic constipation. Reflux esophagitis. DRUG ALLERGIES: None listed. MEDICATIONS: The patient is on rivaroxaban 20 mg with dinner, topical hypochlorite to wound, right leg; amphetamine - Adderall 20-mg tablet p.o. t.i.d., famotidine 20 mg b.i.d., docusate 100 mg b.i.d., ferrous sulfate 325 b.i.d., tamsulosin 0.4 mg daily, fluoxetine 20 mg daily, diltiazem 480 mg daily, sennoside 2 tablets p.o. daily, linezolid 600 mg IV twice daily, Zosyn 3.375 grams IV every 8 hours, insulin lispro per sliding scale p.r.n., fentanyl 50 mcg q.4 hours p.r.n. intravenously, p.r.n. dextrose and glucagon for hypoglycemia, [place] [address] CONSULTATION Name: LENCHO POST Room #: 211-P [facility] IN M.R.#: [id number] Admission: 05/17/17 Attend Phys: Gil More DO Discharge: Date of : 66 Report #: [id number] albuterol inhalation treatments, Trazodone 100 mg at bedtime, p.r.n., and acetaminophen 650 q.i.d. p.r.n. SOCIAL HISTORY: See H and P, old records. FAMILY HISTORY: See H and P, old records. REVIEW OF SYSTEMS: As above. PHYSICAL EXAMINATION: GENERAL: Morbidly obese white man, not toxic looking. VITAL SIGNS: Temperature maximum since admission 98.9, pulse 72, respirations 16, and BP 153/85. HEENT: Head normocephalic, atraumatic. Pupils reactive. MOUTH: Missing teeth. No thrush. NECK: Short, difficult to examine. LUNGS: Decreased breath sounds throughout. HEART: S1 and S2. No gallop. ABDOMEN: Morbidly obese, difficult to examine with large panniculus. GENITALIA: Deferred. RECTAL: Deferred. EXTREMITIES: Reveal some stasis dermatitis of the legs. The right leg wound actually is definitely much better compared to previously at the beginning of April. At present, I see no active signs of infection and no cellulitic changes. NEUROLOGIC: Grossly within normal limits. LABORATORY DATA: Sodium 135, potassium 4.9, BUN 22, creatinine 0.7, note is made that the creatinine is higher than previously on 05/07/2017 and 04/30/2017. Glucose 209, alkaline phosphatase 209, possibly secondary to fatty liver, albumin low at 2.9 g/dL, lactic acid 3.4, down to 2.5, mild elevation, question dehydration. White blood cell count mildly elevated at 12,400, hemoglobin 11.2 g/dL, platelets 487,000. The white blood cell count differential reveals 75% neutrophils, and 13% lymphocytes. ABGs had been cancelled. Cultures obtained at the referring mcc revealed growth of Enterobacter cloacae, E. coli, Proteus mirabilis, as well as MRSA and VRE. ASSESSMENT: 1. Possible wound colonization with multiple organisms on right thigh. 2. Acute kidney injury on chronic kidney disease. 3. Lactic acidemia. 4. Hypoalbuminemia. 5. Possible fatty liver. 6. Status post evacuation of hematoma, right leg. SUGGESTIONS: Recommend continuing local wound care as already done at the [facility] [address] [place] [address] CONSULTATION Name: LENCHO POST Room #: 211-P ADM IN M.R.#: [id number] Admission: 05/17/17 Attend Phys: Gil More DO Discharge: Date of : 66 Report #: [id number] [facility] facility. We will continue Zosyn and Zyvox for 24 hours and subsequently we will switch to oral antibiotics and I ordered a sed rate, CRP, and procalcitonin. If those are normal, doubt very much the patient requires a systemic antibiotic. Dr. More and Dr. Chaudhary, thank you for requesting my suggestions in the care of your patient. <ELECTRONICALLY SIGNED> By: Ziyad Demarco MD 05/19/17 1217 1315 2250 Ziyad Demarco MD /nt
--- NOTE | ~2017-05-17 | HC ---
[facility] [place] [address] CONSULTATION Name: SINCERELENCHO Lopes Room #: 211-P [facility] IN M.R.#: [id number] Admission: 05/17/17 Attend Phys: Gil More DO Discharge: 05/20/17 Date of : 66 Report #: [id number] THIS REPORT FOR: //name// CC: Gil Ramirez DATE OF SERVICE: 05/18/2017 REASON FOR CONSULTATION: Nonhealing surgical wound of right leg, status post hematoma evacuation, wound closure, dehiscence of the wound and subsequent MRSA culture of the wound in a super morbidly obese gentleman with alveolar hyperventilation. HISTORY: The patient is a 47-year-old gentleman is a 47-year-old gentleman who had previously been under the care of Dr. Chris Ramirez. The patient is on Xarelto. The patient had trauma to his right leg, suffered a hematoma of the right leg which was surgically evacuated by Dr. Mishra on 04/21/2017 with closure of the wound. The surgical wound dehisced or , approximately 05/07/2017, leaving a large, open, nonhealing surgical wound. The patient has been living in a prison. He is super morbidly obese with alveolar hypoventilation and is on oxygen. Recent culture of his wound grew MRSA and VRE. The patient thinks that at the facility where he is, the wound may not be getting the attention that is needed. PAST MEDICAL HISTORY: 1. Super morbid obesity. 2. Hemarthrosis of knee, right 3. Obstructive sleep apnea. 4. Chronic kidney disease. ALLERGIES: No known drug allergies. MEDICATIONS: Include albuterol, tamsulosin, ferrous sulfate, Dulcolax, Pepcid, Benadryl, spironolactone, Xarelto, lorazepam, trazodone, Adderall, diltiazem, Prozac, and oxycodone. PAST SURGICAL HISTORY: Septoplasty and uvuloplasty for sleep apnea. History of tracheostomy with septum removal. On 04/21/2017, incision and drainage of right leg hematoma. REVIEW OF SYSTEMS: The patient is short of breath, requires oxygen. Has limited ambulation. SOCIAL HISTORY: Cigarette smoker in the past. [address] [address] CONSULTATION Name: LENCHO POST Room #: 211-P [facility] IN ..#: [id number] Admission: 05/17/17 Attend Phys: Gil More DO Discharge: 05/20/17 Date of : 66 Report #: [id number] PHYSICAL EXAMINATION: GENERAL: Shows a super morbidly obese gentleman with supplemental oxygen tubing at mouth. Mucous membranes are moist. Respirations are mildly labored. ABDOMEN: Super morbidly obese. EXTREMITIES: These are no wounds to the upper extremities. Examination of the right upper lateral leg shows a large 15 cm x 4 cm open wound with heavy exudate, some surrounding cellulitis. There is evidence of chronic venous stasis with inflammation of the entire right leg. Left leg is in a stocking. The patient would not let us look at that. He stated that leg is fine. IMPRESSION: 1. Super morbid obesity with alveolar hyperventilation. 2. Contusion with hematoma of the right leg with surgical evacuation on 04/21/2017. 3. Nonhealing surgical wound of right leg with dehiscence with separation of closed wound after hematoma evacuation, leaving a large open wound. 4. Cellulitis of right leg. 5. Recent culture for methicillin-resistant Staphylococcus aureus positive. 6. Venous stasis with ulcer and inflammation of right leg. PLAN: The patient will ultimately require increased compression of the right leg for healing, but we will start wound care with broad spectrum IV antibiotics per Dr. Demarco and "Valin's" moist dressings to the leg, change twice daily. Once the leg wound is millstone cleaner, then we will be able to initiate compression which will be necessary to heal in the setting of venous stasis. Wound care team will follow closely. <ELECTRONICALLY SIGNED> By: Eric Aldridge MD 05/21/17 1146 0818 1013 Eric Aldridge MD /nt
[2017-05-17 18:42] VITALS: BP 150/71
[2017-05-17 19:27] LABS: ABSOLUTE NEUTROPHILS 9.4 thou/uL (1.4-8.2); BASOPHILS 0.8 % (0.0-2.0); EOSINOPHILS 1.7 % (0.0-3.0); HEMATOCRIT 35.2 % (42.0-52.0); HEMOGLOBIN 11.2 gm/dL (14.0-18.0); LYMPHOCYTES 13.1 % (24.0-44.0); MCH 27.9 pg (26.0-34.0); MCHC 31.9 g/dL (28.0-37.0); MCV 87.7 fL (80.0-100.0); MONOCYTES 8.7 % (1.0-8.0); PLATELET COUNT 487 thou/uL (150-400); POLYS 75.7 % (36.0-66.0); RBC 4.02 mil/uL (4.50-6.00); RDW 15.1 % (10.5-14.5); WBC 12.4 thou/uL (4.0-11.0)
[2017-05-17 19:28] LABS: MANUAL DIFF NO
[2017-05-17 19:32] LABS: CALCIUM 8.8 mg/dL (8.5-10.1); CREATININE 1.7 mg/dL (0.7-1.3); POTASSIUM 4.9 mmol/L (3.5-5.1)
[2017-05-17 19:40] LABS: ALBUMIN 2.9 g/dL (3.4-5.0); TOTAL BILIRUBIN 0.3 mg/dL (<0.1-1.0); TOTAL PROTEIN 8.2 g/dL (6.4-8.2)
[2017-05-17 22:03] VITALS: BP 121/52
[2017-05-17 22:32] VITALS: BP 139/79
[2017-05-18 04:11] VITALS: BP 140/78
[2017-05-18 09:08] VITALS: BP 133/89
[2017-05-18 11:33] VITALS: BP 153/85
[2017-05-18 15:42] VITALS: BP 123/62
[2017-05-18 19:27] VITALS: BP 122/52
[2017-05-19 00:27] VITALS: BP 113/47
[2017-05-19 04:20] VITALS: BP 115/49
[2017-05-19 07:31] VITALS: BP 115/59
[2017-05-19 09:32] LABS: ABSOLUTE NEUTROPHILS 5.7 thou/uL (1.4-8.2); BASOPHILS 1.1 % (0.0-2.0); EOSINOPHILS 3.6 % (0.0-3.0); HEMATOCRIT 32.1 % (42.0-52.0); HEMOGLOBIN 10.1 gm/dL (14.0-18.0); LYMPHOCYTES 23.7 % (24.0-44.0); MCH 28.1 pg (26.0-34.0); MCHC 31.6 g/dL (28.0-37.0); MCV 88.8 fL (80.0-100.0); MONOCYTES 7.6 % (1.0-8.0); PLATELET COUNT 385 thou/uL (150-400); RBC 3.62 mil/uL (4.50-6.00); WBC 8.9 thou/uL (4.0-11.0)
[2017-05-19 09:33] LABS: MANUAL DIFF NO
[2017-05-19 09:46] LABS: CALCIUM 8.5 mg/dL (8.5-10.1); CREATININE 1.4 mg/dL (0.7-1.3); POTASSIUM 4.2 mmol/L (3.5-5.1)
[2017-05-19 11:06] VITALS: BP 159/73
[2017-05-19 19:10] VITALS: BP 120/67
[2017-05-20 03:05] VITALS: BP 119/42
[2017-05-20 03:46] LABS: CALCIUM 8.8 mg/dL (8.5-10.1); CREATININE 1.2 mg/dL (0.7-1.3); POTASSIUM 4.8 mmol/L (3.5-5.1)
[2017-05-20 03:47] LABS: ABSOLUTE NEUTROPHILS 6.5 thou/uL (1.4-8.2); BASOPHILS 0.6 % (0.0-2.0); EOSINOPHILS 3.9 % (0.0-3.0); HEMATOCRIT 31.2 % (42.0-52.0); HEMOGLOBIN 9.7 gm/dL (14.0-18.0); LYMPHOCYTES 19.5 % (24.0-44.0); MCH 27.8 pg (26.0-34.0); MCHC 30.9 g/dL (28.0-37.0); MCV 89.7 fL (80.0-100.0); MONOCYTES 10.8 % (1.0-8.0); PLATELET COUNT 384 thou/uL (150-400); POLYS 65.2 % (36.0-66.0); RBC 3.48 mil/uL (4.50-6.00); RDW 15.3 % (10.5-14.5)
[2017-05-20 03:50] LABS: MANUAL DIFF NO
[2017-05-20 07:42] VITALS: BP 120/66
[2017-05-20 15:13] VITALS: BP 120/66
== END 2017-05-20 14:10 | DRG 603 ==
LOC: ER 18:42 → EROBS 21:37 → 2N 21:37
PROVIDERS: Emergency Medicine; Family Medicine
DX: L03.115 Cellulitis of right lower limb (principal); N17.9 Acute kidney failure, unspecified; E87.2 Acidosis; E66.2 Morbid (severe) obesity with alveolar hypoventilation; Z68.44 Body mass index [BMI] 60.0-69.9, adult; F32.9 Major depressive disorder, single episode, unspecified; M10.9 Gout, unspecified; N18.9 Chronic kidney disease, unspecified; I48.91 Unspecified atrial fibrillation; I87.2 Venous insufficiency (chronic) (peripheral); I12.9 Hypertensive chronic kidney disease with stage 1 through stage 4 chronic kidney disease, or unspecified chronic kidney disease; E11.22 Type 2 diabetes mellitus with diabetic chronic kidney disease; E88.09 Other disorders of plasma-protein metabolism, not elsewhere classified; G89.29 Other chronic pain; F41.9 Anxiety disorder, unspecified; B96.20 Unspecified Escherichia coli [E. coli] as the cause of diseases classified elsewhere; B96.4 Proteus (mirabilis) (morganii) as the cause of diseases classified elsewhere; B95.62 Methicillin resistant Staphylococcus aureus infection as the cause of diseases classified elsewhere; Z79.01 Long term (current) use of anticoagulants; Z87.891 Personal history of nicotine dependence; Z79.899 Other long term (current) drug therapy; Z90.49 Acquired absence of other specified parts of digestive tract; Z80.0 Family history of malignant neoplasm of digestive organs
CPT/HCPCS: 10081